=== PATIENT | male | born 1960 | race Caucasian/White ===

== ENCOUNTER 2021-09-26 08:29 | Observation (INO) ==
[~2021-09-26 08:29] MED LIST: Buffered Lidocaine 1% SYRIN 1 ml INTRADERM ONE; DiMENhydriNATE IV 50 mg/ml 1 ml VIAL IV PUSH ONE; HYDROcodone/ACETAMIN 5/325 mg TAB PO PRN; Lactated Ringers 1000 ml BAG 1,000 ML IV SCH; Metoclopramide 5 MG/ML VIAL (10 mg) IV PRN; Naloxone 0.4 mg VIAL 0.4 mg/ml 1 ml VIAL IV PRN; Ondansetron 4 mg VIAL 2 MG/ML 2 ml VIAL IV PRN; ceFAZolin 1 GM ADVAN 1 GM ADDV.VIAL IVPB ONE; fentaNYL 100 mcg/2 ml 50 MCG/ML VIAL IV PRN
[2021-09-26] MEDS ORDERED: DiMENhydriNATE IV 50 mg/ml 1 ml VIAL ONE (09:14)
[2021-09-26] MEDS ORDERED: ROPIVACAINE 5 MG/ML 30 ML BTL (0.5%) ONE (10:53)
[2021-09-26] MEDS ORDERED: Ondansetron 4 mg VIAL 2 MG/ML 2 ml VIAL ONE (10:56)
[2021-09-26] MEDS ORDERED: Lidocaine 2% PF 5 ML VIAL ONE (10:56)
[2021-09-26] MEDS ORDERED: Midazolam 2 mg/2 ml VIAL 1 mg/ml 2 ml VIAL (2 mg) ONE (10:56)
[2021-09-26] MEDS ORDERED: Dexamethasone IV 4 MG/ML VIAL 1 ml VIAL ONE (10:56)
[2021-09-26] MEDS ORDERED: Rocuronium 50 mg VIAL 10 mg/ml 5 ml VIAL (50 mg) ONE ×3 (10:56→11:41)
[2021-09-26] MEDS ORDERED: fentaNYL 250 mcg/5 ml 50 MCG/ML 5 ml VIAL (250 MCG) ONE ×2 (10:57→12:34)
[2021-09-26] MEDS ORDERED: diPHENhydraMINE 25 mg TAB PO PRN (12:06)
[2021-09-26] MEDS ORDERED: Ondansetron 4 mg VIAL 2 MG/ML 2 ml VIAL IV PRN (12:06)
[2021-09-26] MEDS ORDERED: diPHENhydraMINE IV 50 MG/ML 1 ml VIAL (BENADRYL) IV PRN (12:06)
[2021-09-26] MEDS ORDERED: Lactulose 30 ml UDC PO PRN (12:06)
[2021-09-26] MEDS ORDERED: Ondansetron ODT 4 mg TAB 4 MG TAB PO PRN (12:06)
[2021-09-26] MEDS ORDERED: Magnesium Hydroxide LIQ 30 ML UDC PO PRN (12:06)
[2021-09-26] MEDS ORDERED: fentaNYL 100 mcg/2 ml 50 MCG/ML VIAL ONE (12:34)
[2021-09-26] MEDS ORDERED: Glycopyrrolate IV 0.2 MG/ML 1 ML VIAL ONE ×2 (12:34)
[2021-09-26] MEDS ORDERED: HYDROcodone/ACETAMIN 5/325 mg TAB ONE (14:18)
[2021-09-26] MEDS: Lactated Ringers 1000 ml BAG 1,000 ML IV SCH (15:15)
[2021-09-26] MEDS: ceFAZolin 1 GM ADVAN 1 GM in NS 0.9% 50 ML 50 ML IVPB SCH (19:33)
[2021-09-26] MEDS: Magnesium Hydroxide LIQ 30 ML UDC PO SCH (21:25)
[2021-09-27] MEDS: Lactated Ringers 1000 ml BAG 1,000 ML IV SCH (01:46)
[2021-09-27] MEDS: ceFAZolin 1 GM ADVAN 1 GM in NS 0.9% 50 ML 50 ML IVPB SCH ×2 (04:21→11:27)
[2021-09-27 06:09] LABS: Hematocrit 37 % (42-52); Hemoglobin 12.7 g/dL (14.0-18.0); Platelet Count 212 10^3/uL (150-450)
[2021-09-27 06:21] LABS: Calcium 9.3 mg/dL (8.6-10.3); Potassium 4.3 mmol/L (3.5-5.0); eGFR CKD-EPI 61.2 (>60)
[2021-09-27] MEDS: Magnesium Hydroxide LIQ 30 ML UDC PO SCH (08:07)
[2021-09-27] MEDS ORDERED: Vitamin THERAPEUTIC TAB PO SCH (09:00)
[2021-09-27 10:41] VITALS: BP 93/56
== END 2021-09-27 13:29 | disposition home or self-care (01) ==
LOC: SSU 08:29 → OR 08:29 → EDSTATUS 15:00
PROVIDERS: ADMIT Orthopaedic Surgery Adult Reconstructive Orthopaedic Surgery; ATTEND Orthopaedic Surgery Adult Reconstructive Orthopaedic Surgery